=== PATIENT | male | born 1945 | race Caucasian/White ===

== ENCOUNTER 2020-03-23 06:34 | Day surgery (SDC) | payer BC, MEDICARE ==
[2020-03-23] MEDS ORDERED: Midazolam 1 MG/ML 2 ML SDV IV ONE (06:35)
[2020-03-23] MEDS ORDERED: fentaNYL 100 MCG/2 ML SDV IV ONE (06:35)
[2020-03-23] MEDS ORDERED: Lactated Ringers 1,000 ML IV SCH (06:45)
[2020-03-23] MEDS ORDERED: Sodium Chloride 0.9% 10 ML Syringe FLUSH PRN (06:45)
[2020-03-23] MEDS ORDERED: acetaZOLAMIDE 500 MG Cap.ER PO ONE (08:30)
[2020-03-23 10:26] VITALS: BP 142/89; PULSE 67
--- NOTE | 2020-03-23 14:25 | OR ---
DATE OF OPERATION: 03/23/2020 SURGEON: Minnie Arshad MD PREOPERATIVE DIAGNOSIS: Visually significant cataract, right eye. POSTOPERATIVE DIAGNOSIS: Visually significant cataract, right eye. PROCEDURES PERFORMED: Phacoemulsification with intraocular lens placement, right eye. ASSISTANTS: None. ANESTHESIA: Local with sedation. COMPLICATIONS: None. BLOOD LOSS: None. IMPLANTS: An Aníbal ACU0T0, 15.5 diopter lens, serial number [id number] implanted. CDE: 4.28. DESCRIPTION OF PROCEDURE: After risks and benefits were reviewed with the patient, consent was obtained in the preoperative area, and the operative eye was marked with a surgical pen. In the preoperative area, a pledget was used to dilate the pupil consisting of a mixture of phenylephrine 10%, cyclopentolate 2%, moxifloxacin 0.5%, and bupivacaine 0.75%. The patient was taken to the operating room, where a time-out was performed, and the patient was placed under monitored anesthesia care. Topical tetracaine was used for anesthesia. The operative eye was prepped and draped for ophthalmic surgery, and the microscope was brought into position and focused. A paracentesis incision was made, followed by injection of preservative-free 1% lidocaine into the anterior chamber, followed by injection of Viscoat into the anterior chamber. A microkeratome blade was used to make a corneal limbal incision temporally. A cystotome was used to make the beginning of the capsulorrhexis, which was carried around 360 degrees in a curvilinear fashion using Utrata forceps. A Fisher cannula with BSS was used to hydrodissect and hydrodelineate the nucleus. The nucleus was removed in a divide and conquer manner using phacoemulsification. Irrigation and aspiration were used to remove the remaining cortical material. Provisc was used to inflate the capsular bag, and a pre-loaded Aníbal ACU0T0, 15.5 diopter lens, serial number [id number] was injected into the capsular bag. A Sinskey hook was used to position and center the lens. Next, irrigation and aspiration was used to remove any remaining viscoelastic and cortical material from the anterior chamber. BSS on a cannula was used to inflate the anterior chamber and hydrate the wound. The wound was checked and found to be watertight. 1 mg of Moxifloxacin was injected into the anterior chamber. Drapes were removed and the eye was cleaned. A drop of brimonidine 0.15% and a drop of TobraDex was placed. The eye was shielded, and the patient was taken to the recovery room in stable condition. /[id number] NIKI/LIANNE
== END 2020-03-23 09:00 | disposition home or self-care (01) ==
LOC: FB.SDS 06:34
PROVIDERS: ATTEND Ophthalmology
DX: E11.36 Type 2 diabetes mellitus with diabetic cataract (principal); H25.813 Combined forms of age-related cataract, bilateral; E78.5 Hyperlipidemia, unspecified; E03.9 Hypothyroidism, unspecified; I10 Essential (primary) hypertension; H02.836 Dermatochalasis of left eye, unspecified eyelid; H02.833 Dermatochalasis of right eye, unspecified eyelid; H04.203 Unspecified epiphora, bilateral; H40.003 Preglaucoma, unspecified, bilateral; H35.033 Hypertensive retinopathy, bilateral; Z93.2 Ileostomy status; Z79.899 Other long term (current) drug therapy; Z87.891 Personal history of nicotine dependence; Z79.82 Long term (current) use of aspirin
CPT/HCPCS: 00142; 66984; 82962; A9270; J2250; J3010; J7120; V2632

== ENCOUNTER 2020-04-13 06:29 | Day surgery (SDC) | payer BC ==
[2020-04-13] MEDS ORDERED: Midazolam 1 MG/ML 2 ML SDV IV ONE (06:30)
[2020-04-13] MEDS ORDERED: fentaNYL 100 MCG/2 ML SDV IV ONE (06:30)
[2020-04-13] MEDS ORDERED: Lidocaine 2% 5 ML SDV INJECT ONE (06:30)
[2020-04-13] MEDS ORDERED: Lactated Ringers 1,000 ML IV SCH (06:45)
[2020-04-13] MEDS ORDERED: Sodium Chloride 0.9% 10 ML Syringe FLUSH PRN (06:45)
[2020-04-13] MEDS ORDERED: acetaZOLAMIDE 500 MG Cap.ER PO ONE (08:00)
--- NOTE | 2020-04-13 10:32 | OR ---
DATE OF OPERATION: 04/13/2020 SURGEON: Minnie Arshad MD PREOPERATIVE DIAGNOSES: 1. Visually significant cataract, left eye. 2. Astigmatism, left eye. POSTOPERATIVE DIAGNOSES: 1. Visually significant cataract, left eye. 2. Astigmatism, left eye. PROCEDURES PERFORMED: Phacoemulsification with Toric intraocular lens placement, left eye. ASSISTANTS: None. ANESTHESIA: Local with sedation. COMPLICATIONS: None. BLOOD LOSS: None. IMPLANTS: Aníbal SA6AT3 15.0 Diopter lens implanted. CDE: 5.1. DESCRIPTION OF PROCEDURE: After risks and benefits were reviewed with the patient, consent was obtained in the preoperative area, and the operative eye was marked with a surgical pen. In the preoperative area, a pledget was used to dilate the pupil consisting of a mixture of phenylephrine 10%, cyclopentolate 2%, moxifloxacin 0.5%, and bupivacaine 0.75%. A Toric marker was used to rachael the 0 and 180 degrees axis. The patient was taken to the operating room, where a time-out was performed, and the patient was placed under monitored anesthesia care. Topical tetracaine was used for anesthesia. The operative eye was prepped and draped for ophthalmic surgery, and the microscope was brought into position and focused. A sterile Toric marker was then used to rachael the access of astigmatism. A paracentesis incision was made, followed by injection of preservative-free 1% lidocaine into the anterior chamber, followed by injection of Viscoat into the anterior chamber. A microkeratome blade was used to make a corneal limbal incision temporally. A cystotome was used to make the beginning of the capsulorrhexis, which was carried around 360 degrees in a curvilinear fashion using Utrata forceps. A Fisher cannula with BSS was used to hydrodissect and hydrodelineate the nucleus. The nucleus was removed in a divide and conquer manner using phacoemulsification. Irrigation and aspiration were used to remove the remaining cortical material. Provisc was used to inflate the capsular bag, Aníbal Toric SA6AT3 15.0 diopter lens, serial number [id number] was injected into the capsular bag. A Sinskey hook was used to position and center the lens according to the access of astigmatism. Next, irrigation and aspiration was used to remove any remaining viscoelastic and cortical material from the anterior chamber. BSS on a cannula was used to inflate the anterior chamber and hydrate the wound. The wound was checked and found to be watertight. 1 mg of Moxifloxacin was injected into the anterior chamber. Drapes were removed and the eye was cleaned. A drop of brimonidine 0.15% and a drop of TobraDex was placed. The eye was shielded, and the patient was taken to the recovery room in stable condition. /[id number] NIKI/LIANNE
[2020-04-13 12:09] VITALS: BP 122/79; PULSE 63
== END 2020-04-13 09:07 | disposition home or self-care (01) ==
LOC: FB.SDS 06:29
PROVIDERS: ATTEND Ophthalmology
DX: E11.36 Type 2 diabetes mellitus with diabetic cataract (principal); H52.202 Unspecified astigmatism, left eye; H25.813 Combined forms of age-related cataract, bilateral; E78.5 Hyperlipidemia, unspecified; E03.9 Hypothyroidism, unspecified; E53.8 Deficiency of other specified B group vitamins; H02.836 Dermatochalasis of left eye, unspecified eyelid; H02.833 Dermatochalasis of right eye, unspecified eyelid; H35.033 Hypertensive retinopathy, bilateral; Z79.84 Long term (current) use of oral hypoglycemic drugs; Z79.890 Hormone replacement therapy; Z79.899 Other long term (current) drug therapy; Z93.2 Ileostomy status; Z87.891 Personal history of nicotine dependence
CPT/HCPCS: 00142-QZ; 82962; A9270-GY; J2001; J2250; J3010; J7120

== ENCOUNTER 2022-02-09 14:36 | Emergency (ER) | payer BC, MEDICARE ==
[2022-02-09] MEDS ORDERED: Acetaminophen/oxyCODONE 325-5 MG Tab PO STA (14:41)
[2022-02-09 15:07] LABS: ESTIMATED GFR 79 mL/min (>60)
[2022-02-09] MEDS ORDERED: Iopamidol 755 Mg/ML 100 ML Bottle IV ONE (15:50)
[2022-02-09] MEDS ORDERED: Piperacillin/Tazobactam 4.5 GM in Sodium Chloride 0.9% 100 ML IV SCH (17:15)
[2022-02-09 17:49] VITALS: PULSE 92
[2022-02-09] MEDS ORDERED: Morphine 2 MG/ML SYRINGE IVPUSH ONE (18:52)
[2022-02-09 19:22] VITALS: BP 116/75
== END 2022-02-09 19:20 ==
LOC: FB.ED 14:36
DX: L02.211 Cutaneous abscess of abdominal wall (principal); E78.5 Hyperlipidemia, unspecified; I10 Essential (primary) hypertension; E11.9 Type 2 diabetes mellitus without complications; E03.9 Hypothyroidism, unspecified; E78.00 Pure hypercholesterolemia, unspecified; Z79.82 Long term (current) use of aspirin; Z79.899 Other long term (current) drug therapy; Z79.4 Long term (current) use of insulin
CPT/HCPCS: 36415; 71045; 74177; 80053; 81001; 82150; 83605; 83690; 83880; 84484; 85025; 86140; 96365; 96375; 99285; A9270; J2270; J2543; Q9967